=== PATIENT | female | born 1940 | race Caucasian/White ===

== ENCOUNTER 2017-11-13 02:06 | Inpatient (IN) | payer OTHER ==
[~2017-11-13] VITALS: Ht 157.5 cm; Wt 72.1 kg
[~2017-11-13 02:06] MED LIST: LISINOPRIL20 M1 PO; NORVASC10 M1 PO
--- NOTE | 2017-11-13 14:18 | Admission Core Measures ---
Acute Coronary Syndrome (CM) ACS Core Measures Acute Coronary Syndrome Diagnosis No Congestive Heart Failure (NEW) CHF Core Measures Congestive Heart Failure Diagnosis No Cerebrovascular Accident CVA Core Measures CVA/TIA Diagnosis No Venous Thromboembolism VTE Core Guilherme (View Protocol) VTE Risk Factors Surgery No Mechanical VTE Prophylaxis d/t N/A MechProphylax Ordered No VTE Pharm Prophylaxis d/t NA PharmProphylax ordered Problem List As ranked by this Provider includes Assessment & Plan 1. Unilateral primary osteoarthritis, right knee HOME MEDS Home Med List Amlodipine Besylate (Norvasc) 10 MG TABLET 1 TAB PO DAILY HTN (Reported) Lisinopril 20 MG TABLET 1 TAB PO DAILY HTN (Reported)
[2017-11-13] MEDS ORDERED: PRILOSEC OTC20 M1 PO (14:21)
[2017-11-13] MEDS ORDERED: DILAUDID2 M1 PO (14:21)
[2017-11-13] MEDS ORDERED: MIRALAX17 G1 PO (14:21)
[2017-11-13] MEDS ORDERED: COLACE100 M1 PO (14:21)
[2017-11-13] MEDS ORDERED: ASPIRIN EC325 M2 PO (14:21)
--- NOTE | 2017-11-13 14:25 | Patient Discharge Instructions ---
Discharge Instructions General Discharge Information You were seen/treated for: Right knee pain related to unilateral primary osteoarthritis You had these procedures: Right total knee replacement Watch for these problems: Increasing pain despite the use of pain medication Increasing redness, warmth or swelling Drainage of any type from incision Inability to bear weight on operative leg Persistent nausea and vomiting Fever greater than 101.5 degrees Do not soak the wound: Yes No bath, but you may shower: Yes Other wound care: Please keep wound clean and dry. No ointments or lotions of any type on or near incision at any time. No exceptions. Your dressing will be changed by your nurse on the second day after your surgery. Daily dry dressing changes are recommended each day thereafter. Do not soak your wound in a bath at any time until otherwise indicated by your surgeon. You may shower, please dry wound immediately after shower with a clean towel. Special Instructions: Aspirin: You are taking this medication to help prevent blood clot formation. Please take with food to protect your stomach lining. Please take as directed. Constipation: Pain medication can cause constipation. Dr. Pritchard has recommended that you take Colace and miralax each day. You may discontinue this medication if you develop loose stool or diarrhea. If you wish to continue this medication, it is available over the counter. If you are unable to move your bowels after several days, if you are unable to pass gas and are developing bloating, nausea, or vomiting as a result, please contact your doctor. Diet Continue normal diet: Yes Activity Full Activity/No Limits: No Activity Self Limited: Yes Pounds, do NOT lift more than: 10 Activity Limited to: Weight bear as tolerated Acute Coronary Syndrome Inclusion Criteria At DC or during hospital stay patient has or had the following: ACS DIAGNOSIS No Discharge Core Measures Meds if any: Prescribed or Continued at Discharge Meds if any: NOT Prescribed or Continued at Discharge Congestive Heart Failure Inclusion Criteria At DC or during hospital stay patient has or had the following: CHF DIAGNOSIS No Discharge Core Measures Meds if any: Prescribed or Continued at Discharge Meds if any: NOT Prescribed or Continued at Discharge Cerebrovascular accident Inclusion Criteria At DC or during hospital stay patient has or had the following: CVA/TIA Diagnosis No Discharge Core Measures Meds if any: Prescribed or Continued at Discharge Meds if any: NOT Prescribed or Continued at Discharge Venous thromboembolism Inclusion Criteria VTE Diagnosis No VTE Type NONE VTE Confirmed by (Test) NONE Discharge Core Measures - Per Current guidelines, there needs to be overlap - treatment for the first 5 days of Warfarin therapy. - If discharged on Warfarin prior to 5 days of - overlap therapy, the patient will need to be - assessed for post discharge needs including - *Post discharge parental anticoagulation - *Warfarin and/or parental anticoagulation education - *Follow up date to check INR post discharge At least 5 days overlap therapy as Inpatient No Meds if any: Prescribed or Continued at Discharge Note: Overlap Therapy is Warfarin and Anticoagulant Meds if any: NOT Prescribed or Continued at Discharge
--- NOTE | 2017-11-13 14:31 | Surgical Discharge Summary ---
Visit Information Visit Dates Admission Date: 11/13/17 Discharge Date: 11/15/17 History of Present Illness Chief Complaint: Right knee pain related to unilateral primary osteoarthritis Surgical History Pertinent Surgical History: non-contributory Review of Systems: See H&P Hospital Course Course Attending Physician: Yoni Pritchard MD Primary Care Physician: Al Adrian MD Hospital Course: Patient was admitted to the hospital for an elective total joint replacement. The procedure was tolerated well and patient was transferred to a general surgical floor. Diet was advanced and tolerated. The patient was evaluated and treated by physical therapy. At the time of hospital discharge, the vital signs were stable, neurovascular status was intact, and pain was controlled with the use of oral pain medications. Complications: None Allergies: Coded Allergies: No Known Allergies (11/12/17) Disposition Summary Disposition Principal Diagnosis: Right knee unilateral primary osteoarthritis Additional Diagnosis: None Discharge Disposition: home health services Discharge Instructions General Discharge Information Code Status: Full Code Patient's Diet: Regular, advance as tolerated Patient's Activity: WBAT Follow-Up Instructions/Appts: Follow up with Dr. Pritchard in 6 weeks from date of surgery. Please call office to arrange &/or confirm this appointment Medications at Discharge Discharge Medications: Continue taking these medications: Amlodipine Besylate (Norvasc) 10 MG TABLET 1 Tablet ORAL DAILY Lisinopril (Lisinopril) 20 MG TABLET 1 Tablet ORAL DAILY Start taking the following new medications: Aspirin (Ecotrin*) 325 MG TABLET.DR 1 Tablet ORAL TWICE DAILY Qty = 60 No Refills Docusate Sodium (Colace) 100 MG CAPSULE 1 Capsule ORAL TWICE DAILY Qty = 14 No Refills Instructions: DISCONTINUE USE IF YOU DEVELOP LOOSE STOOL OR DIARRHEA Polyethylene Glycol 3350 (Miralax) 17 GRAM POWD.PACK 1 Packet ORAL DAILY Qty = 7 No Refills Instructions: dissolve in water, DISCONTINUE USE IF YOU DEVELOP LOOSE STOOL OR DIARRHEA Omeprazole Magnesium (Prilosec Otc) 20 MG TABLET.DR 1 Tablet ORAL DAILY Qty = 30 No Refills Tramadol HCl (Ultram) 50 MG TABLET 1 Tablet ORAL EVERY 4-6 HOURS NEEDED as needed for pain control Qty = 30 No Refills Instructions: tylenol may be used alternatively or in combination Ondansetron HCl (Zofran) 4 MG TABLET 1 Tablet ORAL Every 6-8 Hours as Needed as needed for NAUSEA/VOMITING Qty = 12 No Refills Copies To: Kaylah LOCKHART,Al Rios
--- NOTE | 2017-11-13 16:43 | Operative Report ---
Operative/Inv Procedure Report Surgery Date: 11/13/17 Name of Procedure: Right total knee replacement Pre-Operative Diagnosis: Primary right knee DJD Post-Operative Diagnosis: Same Estimated Blood Loss: 50ml to 100ml Surgeon/Bundle Sorter: Francheska LOCKHART,Yoni Dominique Anesthesia: block Operative/Procedure Note Note: Description of Procedure: The patient was taken to the operating room and positively identified. After induction of spinal anesthesia and administration of appropriate pre-operative antibiotics, the patient was positioned supine on the operating room table and all bony prominences were well padded. A well-padded pneumatic tourniquet was placed on the right upper thigh. After performing a surgical timeout, the right lower extremity was prepped and draped in the usual sterile fashion. After exsanguination with Esmarch the tourniquet was inflated to 250mm of mercury. A standard medial parapatellar approach was made to the knee. This was carried down through skin and subcutaneous tissue to the level of the fascia. Meticulous hemostasis was maintained with Bovie electrocautery. The extensor mechanism and patellar retinaculum were opened sharply and the patella was everted. The infrapatellar fat was resected in order to improve exposure. Osteophytes were trimmed from the patella and femoral condyles and the patella was re-everted and tucked laterally. A medial release was performed and the cruciate ligaments were resected. The tibia was then subluxed anteriorly. Utilizing the appropriate extra-medullary guide, the proximal tibia was trimmed perpendicular to the long axis of the tibial shaft. Attention was then turned to the femur. After opening the medullary canal, the distal femoral cut was made in 6 degrees of valgus utilizing the appropriate intra-medullary guide. The extension gap was checked and found to be appropriate. The femur was then sized and the remainder of the femoral cuts were made with a size #4 4-in-1 femoral cutting guide. The flexion gap was checked and found to be symmetric and appropriate. The knee was then trialed with a size for femoral component, a size 5 tibial component and a size 22 mm TS polyethylene insert. The patella was trimmed to accept an A 35 patella. This yielded excellent range of motion, stability and patellar tracking. All trial components were removed and the knee was copiously irrigated with sterile saline. All components were cemented into place with [place] Simplex cement. All the components were of the Lauri Triathlon knee system of the above stated sizes. The knee was again irrigated after cementation. The extensor mechanism and patellar retinaculum were repaired using interrupted #1 vicryl suture. The skin was re-approximated with 2-0 vicryl and closed with andrew. A sterile dressing was applied, the tourniquet was deflated, the patient was awakened and taken to the recovery room in satisfactory condition.
--- NOTE | 2017-11-13 20:05 | PN- Orthopedic ---
Subjective Subjective: POC +N/V. getting meds now. pain controlled. +oob to bathroom, +void. pt eval in am. Objective Vital Signs and I&Os Intake & Output 11/13 0811/13 0000 11/12 1600 11/12 0811/12 0000 Intake Total Output Total Balance Patient 150 lb Weight Physical Exam: gen- nad card-s1s2 pulm- no audible wheeze abd- soft nt ext- rle in mary, feet warm, palp dp/pt, gross sensation intact bl, gross dorsi/ plantarflexion intact/equal bl, calves soft nt, alps on bl Assessment/Plan Assessment/Plan A- POD0 sp R TKR, with postop nausea/vomiting, otherwise stable. P- prn antiemetics ivf prn pain meds i&os oob, wbat, pt home meds asa 325bid, alps will dw attending Core Measures Venous Thromboembolism VTE Risk Factors Surgery No Mechanical VTE Prophylaxis d/t N/A MechProphylax Ordered No VTE Pharm Prophylaxis d/t NA PharmProphylax ordered
[2017-11-13 20:31] VITALS: BP 100/50
[2017-11-13 23:22] VITALS: BP 110/50
[2017-11-14 02:22] VITALS: BP 104/50
[2017-11-14 04:23] VITALS: BP 118/56
[2017-11-14 08:21] VITALS: BP 128/50
--- NOTE | 2017-11-14 08:27 | PN- Orthopedic ---
Subjective Subjective: Nausea reportedly improving, no emesis today. Tolerated crackers overnight, will try breakfast this am. Has been drinking water, has been voiding. Denies chest pain, shortness of breath and difficulty breathing. Pain responding to medication. Anticipates ambualting with PT today. Objective Vital Signs and I&Os Vital Signs Date Time Temp Pulse Resp B/P B/P Pulse O2 O2 Flow FiO2 Mean Ox Delivery Rate 11/14 08 98.2 63 18 128/50 98 Room Air 11/14 0423 97.9 60 18 118/56 98 Room Air 11/14 0222 97.6 62 18 104/50 97 Room Air 11/13 2322 97.7 60 18 110/50 97 Room Air 11/13 2031 98.0 73 18 100/50 97 Room Air Intake & Output 11/14 1600 11/14 0800 11/14 0000 11/13 1600 11/13 0800 11/13 0000 Intake Total 990 400 Output Total 600 400 Balance 390 0 Intake, IV 750 300 Intake, Oral 240 100 Output, Urine 600 400 Patient 159 lb Weight Physical Exam: General: Alert and oriented x3, no acute distress Cardiac: RRR, s1s2 Pulm: CTA bilaterally, non-labored respiratory effort Abd: Non-distended Extremities: Moves all extremities, distal sensation grossly intact. Skin warm and well perfused. DP pulses palpable bilaterally. Bilateral calves soft and non-tender Surgical site: R knee, dressing dry and intact. Assessment/Plan Assessment/Plan This is a 76 year old female, POD 1, s/p R TKR. -DC iv fluids for now, will restart if n/v worsens -OOB, WBAT -Continue diet as tolerated -Continue current pain regimen -ASA 325 bid for dvt ppx Will discuss poc owith Dr. Pritchard Core Measures Venous Thromboembolism VTE Risk Factors Surgery No Mechanical VTE Prophylaxis d/t N/A MechProphylax Ordered No VTE Pharm Prophylaxis d/t NA PharmProphylax ordered
[2017-11-14 08:35] LABS: ABSOLUTE BASOPHIL COUNT 0 /CUMM (0.0-0.2); ABSOLUTE EOSINOPHIL COUNT 0 /CUMM (0.0-0.7); ABSOLUTE GRANULOCYTE CT 8.6 /CUMM (1.4-6.5); ABSOLUTE LYMPH COUNT 0.6 /CUMM (1.2-3.4); ABSOLUTE MONOCYTE COUNT 0.5 /CUMM (0.10-0.60); BASOPHIL % 0 % (0.0-2.0); EOSINOPHIL % 0 % (0-5); GRANULOCYTE % 88.4 % (42.2-75.2); HEMATOCRIT 27.5 % (37-47); MEAN CORPUSCULAR HGB CONC 33.5 G/DL (33.0-37.0); MEAN CORPUSCULAR VOLUME 86.4 FL (81.0-99.0); MEAN PLATELET VOLUME 9.9 FL (7.4-10.4); PLATELET COUNT 163 /CUMM (130-400); RBC DISTRIBUTION WIDTH 13.7 % (11.5-14.5); RED BLOOD CELL CT 3.18 /CUMM (4.20-5.40); WHITE BLOOD CELL COUNT 9.7 /CUMM (4.8-10.8)
[2017-11-14 11:36] VITALS: BP 122/50
[2017-11-14 14:10] VITALS: BP 126/42
[2017-11-14 21:12] VITALS: BP 150/54
[2017-11-15 06:57] VITALS: BP 129/60
--- NOTE | 2017-11-15 07:49 | PN- Orthopedic ---
Subjective Subjective: PT STILL VERY NAUSEOUS THIS MORNING, VOMITING LAST NIGHT. PT HAS LIMITIED PO INTAKE. PT SAYS SHE USUALLY GET NAUSEOUS FOR 3-5 DAYS ANY TIME AFTER SHE HAS ANESTHESIA. IS VOIDING BUT SAYS HER URINE IS DARK IN COLOR. NOT TAKING ANY NARCOTICS PT ALSO FEELS LIGHTHEADED WHEN SHE STANDS UP. Objective Vital Signs and I&Os Vital Signs Date Time Temp Pulse Resp B/P B/P Pulse O2 O2 Flow FiO2 Mean Ox Delivery Rate 11/15 0657 98.4 67 18 129/60 98 Room Air 11/14 2112 99.0 72 16 150/54 98 Room Air 11/14 1410 98.2 70 18 126/42 100 Room Air 11/14 1136 98.5 67 18 122/50 98 Room Air 11/14 0842 63 128/50 11/14 0842 63 128/50 11/14 0821 98.2 63 18 128/50 98 Room Air Intake & Output 11/15 0800 11/15 0000 11/14 1600 11/14 0800 11/14 0000 11/13 1600 Intake Total 700 510 450 990 400 Output Total 400 900 150 600 400 Balance 300 -390 300 390 0 Intake, IV 600 10 0 750 300 Intake, Oral 100 500 450 240 100 Number 0 0 Bowel Movements Output, 300 Emesis Output, Urine 400 600 150 600 400 Patient 159 lb Weight Physical Exam: GEN- NAD RESP- clear CARDIAC- rrr ABD- soft, nontender EXT-dressing changed, no signs of infection, andrew in place, no drainage. calfs soft, not tender. distal sensory and motor function intact. 2 + dp pulse Current Medications: Current Medications Sig/Danielle Start time Last Medication Dose Route Stop Time Status Admin Acetaminophen 1,000 MG Q6H 11/14 0100 DC 11/14 IV 11/14 1301 1211 Amlodipine Besylate 10 MG DAILY 11/14 0900 AC 11/14 PO 0842 Aspirin 325 MG BID 11/13 2100 AC 11/14 PO 202 Dextrose/Sodium 1,000 ML .Q8H 11/15 0745 AC 11/15 Chloride IV 11/15 1200 0740 Dextrose/Sodium 1,000 ML .[id number] 11/13 1815 DC 11/14 Chloride IV 0627 Docusate Sodium 100 MG BID 11/13 2100 AC 11/14 PO 202 Hydromorphone HCl 2 MG Q4P PRN 11/13 1814 AC PO Hydromorphone HCl 4 MG Q4P PRN 11/13 1814 AC PO Lisinopril 20 MG DAILY 11/14 899 AC 11/14 PO 0842 Morphine Sulfate 2 MG Q2P PRN 11/13 1814 AC IV Omeprazole 40 MG DAILY AC 11/14 699 AC 11/15 PO 0543 Ondansetron HCl 4 MG Q6P PRN 11/13 1814 AC 11/15 IV 0725 Polyethylene Glycol 17 GM DAILY 11/14 899 AC 11/14 PO 0842 Promethazine HCl 12.5 MG Q6P PRN 11/13 1814 AC 11/13 IV 11/20 1414 202 Tramadol HCl 50 MG Q6P PRN 11/14 174 AC PO Results Last 48 Hours of Labs: Laboratory Tests 11/15 711 Chemistry Sodium (137 - 145 mmol/L) 134 L Potassium (3.5 - 5.1 mmol/L) 4.1 Chloride (98 - 107 mmol/L) 100 Carbon Dioxide (22 - 30 mmol/L) 23 Anion Gap (5 - 16) 11 BUN (7 - 17 mg/dL) 16 Creatinine (0.5 - 1.0 mg/dL) 0.6 Estimated GFR (>60 ml/min) > 60 BUN/Creatinine Ratio (7 - 25 %) 26.7 H Hematology CBC w Diff MAN DIFF ORDERED WBC (4.8 - 10.8 /CUMM) 9.7 RBC (4.20 - 5.40 /CUMM) 3.18 L Hgb (12.0 - 16.0 G/DL) 9.2 L Hct (37 - 47 %) 27.5 L MCV (81.0 - 99.0 FL) 86.4 MCH (27.0 - 31.0 PG) 29.0 MCHC (33.0 - 37.0 G/DL) 33.5 RDW (11.5 - 14.5 %) 13.7 Plt Count (130 - 400 /CUMM) 163 MPV (7.4 - 10.4 FL) 9.9 Gran % (42.2 - 75.2 %) 88.4 H Lymphocytes % (20.5 - 51.1 %) 6.6 L Monocytes % (1.7 - 9.3 %) 5.0 Eosinophils % (0 - 5 %) 0 Basophils % (0.0 - 2.0 %) 0 Absolute Granulocytes (1.4 - 6.5 /CUMM) 8.6 H Segmented Neutrophils (42.2 - 75.2 %) 75 Band Neutrophils (0.0 - 5.0 %) 15 H Absolute Lymphocytes (1.2 - 3.4 /CUMM) 0.6 L Lymphocytes (20.5 - 51.1 %) 7 L Monocytes (1.7 - 9.3 %) 2 Absolute Monocytes (0.10 - 0.60 /CUMM) 0.5 Absolute Eosinophils (0.0 - 0.7 /CUMM) 0 Basophils (0.0 - 2.0 %) 1 Absolute Basophils (0.0 - 0.2 /CUMM) 0 Platelet Estimate (ADEQUATE) VERIFIED BY SMEAR Normocytic RBCs VERIFIED Normochromic RBCs VERIFIED Assessment/Plan Assessment/Plan This is a 76 year old female, POD 2, s/p R TKR. -will add PO Reglan, if tolerates then may send home with a prescription to help with nausea -RESTART IVF, will re-access after 500mL in -OOB, WBAT -Continue diet as tolerated -Continue current pain regimen with ultram and tylenol -ASA 325 bid for dvt ppx -dc planning, possibly home tomorrow or later today if nausea improves Will discuss poc emil Pritchard Core Measures Venous Thromboembolism VTE Risk Factors Surgery No Mechanical VTE Prophylaxis d/t N/A MechProphylax Ordered No VTE Pharm Prophylaxis d/t NA PharmProphylax ordered
[2017-11-15] MEDS ORDERED: ZOFRAN4 M2 PO (13:14)
[2017-11-15] MEDS ORDERED: ULTRAM50 M1 PO (13:14)
[2017-11-15 14:15] VITALS: BP 132/65
== END 2017-11-15 15:05 | disposition home health service (06) | DRG 470 ==
LOC: SDA 02:06 → ENRESERV 17:22 → ENTRNSPT 17:41 → EDTRNSPTSTS 17:56 → EDTRNSPT 17:56 → 2NB 18:05 → CMPTRNSPT 18:13 → ENPENDDIS 11-15 13:09 → ENTRNSPT 11-15 14:52 → EDTRNSPTSTS 11-15 14:59 → 2NB 11-15 15:05 → CMPTRNSPT 11-15 15:28
PROVIDERS: Nurse Practitioner
PROC: 0SRC0J9 Replacement of Right Knee Joint with Synthetic Substitute, Cemented, Open Approach (ICD-10-PCS; principal; 2017-11-13)
DX: M17.11 Unilateral primary osteoarthritis, right knee (principal); M48.061 Spinal stenosis, lumbar region without neurogenic claudication; R11.2 Nausea with vomiting, unspecified
CPT/HCPCS: 2NBP; 36592; 82436; 97110-GO; 97116-GO; 97161-GP; 97530-GO; C1713; C9290; J0131; J0690; J1100; J2405; J2550; J7042